=== PATIENT | female | born 1970 | race African-American/Black ===

== ENCOUNTER 2024-07-01 00:14 | Emergency (ER) | payer BC ==
[2024-07-01] MEDS ORDERED: Sodium Chloride For Inhalation 0.9% 3 ML NEB ONE (00:19)
[2024-07-01] MEDS ORDERED: Ipratropium/Albuterol 3 ML NEB ONE (00:19)
[2024-07-01] MEDS ORDERED: predniSONE 20 MG TAB ONE (00:32)
== END 2024-07-01 01:00 | disposition home or self-care (01) ==
LOC: NAV ERS 00:14
DX: J45.901 Unspecified asthma with (acute) exacerbation (principal); I10 Essential (primary) hypertension; E78.5 Hyperlipidemia, unspecified; E03.9 Hypothyroidism, unspecified; Z79.899 Other long term (current) drug therapy
CPT/HCPCS: 94640; J7512; J7620